=== PATIENT | female | born 1995 | race Two or more races ===

== ENCOUNTER 2023-04-29 10:37 | Outpatient (CLI) | payer OTHER | END 2023-04-29 17:17 | disposition home or self-care (01) | LOC: PRENATAL 10:37 | PROVIDERS: ATTEND Obstetrics & Gynecology Maternal & Fetal Medicine | DX: O35.3XX0 Maternal care for (suspected) damage to fetus from viral disease in mother, not applicable or unspecified (principal); O34.219 Maternal care for unspecified type scar from previous cesarean delivery; O44.00 Complete placenta previa NOS or without hemorrhage, unspecified trimester; Z3A.20 20 weeks gestation of pregnancy ==

== ENCOUNTER → 2023-06-24 14:54 | Outpatient (CLI) | payer OTHER | END | disposition home or self-care (01) | LOC: PRENATAL 14:54 | PROVIDERS: ATTEND Obstetrics & Gynecology Maternal & Fetal Medicine | DX: O26.849 Uterine size-date discrepancy, unspecified trimester (principal); O34.219 Maternal care for unspecified type scar from previous cesarean delivery; O44.00 Complete placenta previa NOS or without hemorrhage, unspecified trimester; O43.219 Placenta accreta, unspecified trimester; Z3A.28 28 weeks gestation of pregnancy ==

== ENCOUNTER → 2023-06-29 | Emergency (ER) | payer OTHER ==
[~2023-06-29] VITALS: Ht 160 cm; Wt 73.5 kg
[~2023-06-29] MED LIST: PRENATABS RX T1 EACH
[2023-06-29 19:29] LABS: HEMATOCRIT 31.2 % (36.0-45.00); HEMOGLOBIN 10.3 g/dL (12.0-15.00); MEAN CELL VOLUME 83.3 fL (80.00-100.00); MEAN CORPUSCULAR HEMOGLOBIN 27.6 pg (27.00-32.0); MEAN CORPUSCULAR HGB CONC 33.2 g/dl (32.0-36.0); PLATELET COUNT 259 K/uL (150-450); RED BLOOD COUNT 3.74 M/uL (4.00-6.00); RED CELL DISTRIBUTION WIDTH 14.6 % (11.5-14.5)
[2023-06-29 19:50] LABS: ABG PH 7.431 (7.35-7.45); ABG PO2 78.4 mmHg (80-100); BICARBONATE 18.9 mmol/l (23-25); SaO2 95.7 %; Tco2 19.7 mmol/l; o2 21 %
[2023-06-29 19:51] LABS: allen test SATISFACTORY; puncture site RADIAL RIGHT
== END | disposition home or self-care (01) ==
LOC: ER 18:25
PROVIDERS: Nurse Practitioner Family
DX: J45.901 Unspecified asthma with (acute) exacerbation (principal); Z20.822 Contact with and (suspected) exposure to COVID-19

== ENCOUNTER 2023-06-30 15:38 | Inpatient (IN) | payer OTHER ==
[~2023-06-30] VITALS: Ht 157.5 cm; Wt 73.5 kg
[2023-06-30 20:48] LABS: PH,URINE 5.5 (5.0-8.0); URINE APPEARANCE Turbid; URINE BILIRRUBIN Negative (NEGATIVE); URINE BLOOD Negative; URINE COLOR Yellow; URINE LEUKOCYTE Small; URINE NITRATE Negative; URINE PROTEIN Negative (NEGATIVE)
[2023-06-30 20:49] LABS: URINE RBC 9.6 uL (0.0-20.8); URINE WBC 227.5 uL (0.0-23.2)
[2023-06-30 21:09] LABS: URINE BACTERIA > 9821.5 uL (0.0-1933); URINE CRYSTALS FEW /HPF; URINE EPITHELIAL CELLS > 201.7 uL (0.0-38.8); URINE GLUCOSE 250 MG/DL (NEGATIVE)
== END 2023-07-01 15:51 | disposition home or self-care (01) | DRG 833 ==
LOC: OBS/DEL 15:38 → LDR 17:43
PROVIDERS: ADMIT Obstetrics & Gynecology Obstetrics; ATTEND Obstetrics & Gynecology Obstetrics
PROC: 4A1HXCZ Monitoring of Products of Conception, Cardiac Rate, External Approach (ICD-10-PCS; principal; 2023-06-30)
PROC: 3E0F7GC Introduction of Other Therapeutic Substance into Respiratory Tract, Via Natural or Artificial Opening (ICD-10-PCS; 2023-06-30)
DX: O99.513 Diseases of the respiratory system complicating pregnancy, third trimester (principal); J45.909 Unspecified asthma, uncomplicated; Z3A.29 29 weeks gestation of pregnancy; Z20.822 Contact with and (suspected) exposure to COVID-19

== ENCOUNTER 2023-07-28 22:17 | Inpatient (IN) | payer OTHER ==
[~2023-07-28] VITALS: Ht 157.5 cm; Wt 76.2 kg
[2023-07-28] MEDS ORDERED: LABETALOL HCL 100 MG/20 ML ML ONE (22:46)
[2023-07-28] MEDS ORDERED: BETAMETHASONE ACETATE,SOD PHOS 30 MG/5 ML ML ONE (22:57)
[2023-07-28] MEDS ORDERED: MAGNESIUM SULFATE IN WATER 500 ML IV SCH (23:30)
[2023-07-28] MEDS ORDERED: BETAMETHASONE ACETATE,SOD PHOS 30 MG/5 ML ML IM ONE (23:30)
[2023-07-28] MEDS ORDERED: LABETALOL HCL 100 MG/20 ML ML IV PUSH ONE ×3 (23:30)
[2023-07-28 23:56] LABS: PH,URINE 6.5 (5.0-8.0); URINE APPEARANCE Clear; URINE BILIRRUBIN Negative (NEGATIVE); URINE BLOOD Small; URINE COLOR Yellow; URINE GLUCOSE Negative (NEGATIVE); URINE LEUKOCYTE Negative; URINE NITRATE Negative; URINE PROTEIN >=1000 (NEGATIVE); URINE UROBILINOGEN 0.2 E.U./dl
[2023-07-28 23:59] LABS: URINE BACTERIA 549.3 uL (0.0-1933); URINE EPITHELIAL CELLS 34.7 uL (0.0-38.8); URINE RBC 19.8 uL (0.0-20.8); URINE WBC 22.2 uL (0.0-23.2)
[2023-07-29 00:07] LABS: HEMATOCRIT 35.5 % (36.0-45.00); MEAN CELL VOLUME 82.4 fL (80.00-100.00); MEAN CORPUSCULAR HGB CONC 33.6 g/dl (32.0-36.0); PLATELET COUNT 250 K/uL (150-450); RED CELL DISTRIBUTION WIDTH 16.1 % (11.5-14.5)
[2023-07-29 00:08] LABS: HEMOGLOBIN 11.9 g/dL (12.0-15.00); MEAN CORPUSCULAR HEMOGLOBIN 27.6 pg (27.00-32.0)
[2023-07-29 00:26] LABS: INR < 0.93; PARTIAL THROMBOPLASTIN TIME 27.3 SECONDS (22.0-34.0); PROTHROMBIN TIME 9.7 SECONDS (9.0-11.5)
[2023-07-29 00:28] LABS: ABG PH 7.396 (7.35-7.45); ABG PO2 78.1 mmHg (80-100); ABG pCO2 30.4 mmHg (35-45); BASE EXCESS -5.3 mmol/l; BICARBONATE 18.2 mmol/l (23-25); SaO2 95.1 %; Tco2 19.2 mmol/l; allen test SATISFACTORY; puncture site RADIAL RIGHT
[2023-07-29 00:29] LABS: o2 32 %
[2023-07-29] MEDS ORDERED: LEVALBUTEROL HCL 0.63 MG/3 ML SOLUTION IH SCH (00:30)
[2023-07-29 00:31] LABS: ALBUMIN 1.9 gm/dL (3.4-5.0); BILIRUBIN TOTAL 0.33 mg/dL (0.3-1.2); CALCIUM 8.3 mg/dL (8.5-10.1); CREATININE SERUM 1.03 mg/dL (0.55-1.02); GFR 63.35; GLOBULINA 3.8 G/DL (2.4-3.5); POTASSIUM 4.11 mEq/L (3.5-5.1); TOTAL PROTEIN 5.7 gm/dL (6.4-8.2)
[2023-07-29] MEDS ORDERED: PROMETHAZINE HCL 25 MG/ML AMPUL IV ONE (01:00)
[2023-07-29] MEDS ORDERED: MEPERIDINE HCL/PF 25 MG/ML VIAL IV ONE (01:00)
[2023-07-29] MEDS ORDERED: LABETALOL HCL 100 MG/20 ML ML IV PUSH ONE ×3 (01:00→07:30)
[2023-07-29] MEDS ORDERED: METHYLPREDNISOLONE SOD SUCC 40 MG VIAL IV STA (08:51)
[2023-07-29] MEDS ORDERED: PANTOPRAZOLE SODIUM 40 MG/VIAL VIAL IV PUSH SCH (09:00)
[2023-07-29] MEDS ORDERED: BUDESONIDE 0.5 MG/2 ML AMPUL.NEB IH SCH (09:00)
[2023-07-29] MEDS ORDERED: LABETALOL HCL 200 MG/40 ML VIAL IV SCH (09:00)
[2023-07-29] MEDS ORDERED: ENOXAPARIN SODIUM 30 MG/0.3 ML SYRINGE SUBCUTANEO SCH (09:00)
[2023-07-29] MEDS ORDERED: SODIUM CHLORIDE 0.45% IV SCH (09:45)
[2023-07-29] MEDS ORDERED: LABETALOL HCL IV SCH (09:45)
[2023-07-29] MEDS ORDERED: hydrALAZINE HCL 20 MG VIAL IV PRN (12:45)
[2023-07-29] MEDS ORDERED: hydrALAZINE HCL 25 MG TABLET PO SCH (13:00)
[2023-07-29 14:02] LABS: HEMATOCRIT 43.4 % (36.0-45.00); HEMOGLOBIN 14.4 g/dL (12.0-15.00); MEAN CELL VOLUME 82.2 fL (80.00-100.00); MEAN CORPUSCULAR HEMOGLOBIN 27.2 pg (27.00-32.0); MEAN CORPUSCULAR HGB CONC 33.1 g/dl (32.0-36.0); PLATELET COUNT 255 K/uL (150-450); RED BLOOD COUNT 5.28 M/uL (4.00-6.00); RED CELL DISTRIBUTION WIDTH 16.7 % (11.5-14.5)
[2023-07-29 14:44] LABS: FIBRINOGEN 591 mg/dL (187.0-446.0); INR < 0.93; PARTIAL THROMBOPLASTIN TIME 23.6 SECONDS (22.0-34.0); PROTHROMBIN TIME 9.3 SECONDS (9.0-11.5)
[2023-07-29 15:04] LABS: ALBUMIN 2.2 gm/dL (3.4-5.0); BILIRUBIN TOTAL 0.47 mg/dL (0.3-1.2); CALCIUM 8.1 mg/dL (8.5-10.1); CREATININE SERUM 1.03 mg/dL (0.55-1.02); GFR 63.35; GLOBULINA 4.6 G/DL (2.4-3.5); POTASSIUM 4.32 mEq/L (3.5-5.1); TOTAL PROTEIN 6.8 gm/dL (6.4-8.2); URIC ACID 8.5 mg/dL (2.5-7.5)
[2023-07-29] MEDS ORDERED: METHYLPREDNISOLONE SOD SUCC 40 MG VIAL IV SCH (17:00)
[2023-07-29] MEDS ORDERED: ERYTHROMYCIN BASE 3.5 GM OINT...G. OP ONE (17:42)
[2023-07-29] MEDS ORDERED: OXYTOCIN 10 UNITS/ML VIAL ONE (17:42)
[2023-07-29] MEDS ORDERED: CEFAZOLIN SODIUM 1,000 MG VIAL ONE (18:27)
[2023-07-29] MEDS ORDERED: MEPERIDINE HCL/PF 50 MG/ML VIAL IM PRN (19:15)
[2023-07-29] MEDS ORDERED: OXYTOCIN 1,000 ML IV SCH (19:15)
[2023-07-29] MEDS ORDERED: OXYTOCIN 20 UNITS/1000ML RL PIGGYBAG IV ONE (20:45)
[2023-07-29] MEDS ORDERED: ERYTHROMYCIN BASE 1 GM TUBE OP ONE (20:45)
[2023-07-29] MEDS ORDERED: CEFAZOLIN SODIUM 1,000 MG VIAL IV ONE (20:45)
[2023-07-29] MEDS ORDERED: PROMETHAZINE HCL 25 MG/ML AMPUL IM SCH (21:00)
[2023-07-29 22:49] LABS: ABG PH 7.132 (7.35-7.45); ABG PO2 11.5 mmHg (80-100); ABG pCO2 57.7 mmHg (35-45); BASE EXCESS -10.9 mmol/l; BICARBONATE 18.8 mmol/l (23-25); SaO2 7.3 %; Tco2 20.6 mmol/l; o2 21 %
[2023-07-29] MEDS ORDERED: BETAMETHASONE ACETATE,SOD PHOS 30 MG/5 ML ML IM ONE (23:00)
[2023-07-30 07:27] LABS: HEMATOCRIT 39.3 % (36.0-45.00); HEMOGLOBIN 12.8 g/dL (12.0-15.00); MEAN CELL VOLUME 82.2 fL (80.00-100.00); MEAN CORPUSCULAR HEMOGLOBIN 26.9 pg (27.00-32.0); MEAN CORPUSCULAR HGB CONC 32.7 g/dl (32.0-36.0); PLATELET COUNT 283 K/uL (150-450); RED BLOOD COUNT 4.78 M/uL (4.00-6.00); RED CELL DISTRIBUTION WIDTH 16.6 % (11.5-14.5)
[2023-07-30 07:31] LABS: ALBUMIN 1.8 gm/dL (3.4-5.0); BILIRUBIN TOTAL 0.26 mg/dL (0.3-1.2); CALCIUM 7.6 mg/dL (8.5-10.1); CREATININE SERUM 1.32 mg/dL (0.55-1.02); GFR 47.58; GLOBULINA 3.6 G/DL (2.4-3.5); POTASSIUM 4.46 mEq/L (3.5-5.1); TOTAL PROTEIN 5.4 gm/dL (6.4-8.2)
[2023-07-30] MEDS ORDERED: OxyCODONE HCL/APAP UD (PERCOCET) PO PRN (09:45)
[2023-07-31 07:17] LABS: ALBUMIN 1.9 gm/dL (3.4-5.0); BILIRUBIN TOTAL 0.26 mg/dL (0.3-1.2); CALCIUM 6.9 mg/dL (8.5-10.1); CREATININE SERUM 0.94 mg/dL (0.55-1.02); GFR 69.92; GLOBULINA 3.7 G/DL (2.4-3.5); POTASSIUM 4.64 mEq/L (3.5-5.1); TOTAL PROTEIN 5.6 gm/dL (6.4-8.2)
[2023-07-31 07:22] LABS: HEMATOCRIT 37.4 % (36.0-45.00); HEMOGLOBIN 12.2 g/dL (12.0-15.00); MEAN CELL VOLUME 81.9 fL (80.00-100.00); MEAN CORPUSCULAR HEMOGLOBIN 26.8 pg (27.00-32.0); MEAN CORPUSCULAR HGB CONC 32.8 g/dl (32.0-36.0); PLATELET COUNT 290 K/uL (150-450); RED BLOOD COUNT 4.57 M/uL (4.00-6.00); RED CELL DISTRIBUTION WIDTH 16.6 % (11.5-14.5)
[2023-08-01 08:17] LABS: ALBUMIN 1.8 gm/dL (3.4-5.0); BILIRUBIN TOTAL 0.31 mg/dL (0.3-1.2); CALCIUM 7.4 mg/dL (8.5-10.1); CREATININE SERUM 0.76 mg/dL (0.55-1.02); GFR 89.36; GLOBULINA 3.2 G/DL (2.4-3.5); POTASSIUM 4.66 mEq/L (3.5-5.1)
[2023-08-01 08:23] LABS: HEMATOCRIT 31.5 % (36.0-45.00); MEAN CELL VOLUME 83.2 fL (80.00-100.00); MEAN CORPUSCULAR HGB CONC 32.9 g/dl (32.0-36.0); PLATELET COUNT 205 K/uL (150-450); RED BLOOD COUNT 3.79 M/uL (4.00-6.00); RED CELL DISTRIBUTION WIDTH 16.9 % (11.5-14.5)
[2023-08-01 08:32] LABS: HEMOGLOBIN 10.4 g/dL (12.0-15.00); MEAN CORPUSCULAR HEMOGLOBIN 27.4 pg (27.00-32.0)
== END 2023-08-01 14:50 | disposition home or self-care (01) | DRG 788 ==
LOC: LDR 22:17 → O/R 07-29 18:47 → LDR 07-30 00:46 → OB/GYN 07-31 15:24
PROVIDERS: Obstetrics & Gynecology Maternal & Fetal Medicine; ADMIT Obstetrics & Gynecology Obstetrics; ATTEND Obstetrics & Gynecology Obstetrics
PROC: 4A1HXCZ Monitoring of Products of Conception, Cardiac Rate, External Approach (ICD-10-PCS; 2023-07-28)
PROC: BY4FZZZ Ultrasonography of Third Trimester, Single Fetus (ICD-10-PCS; 2023-07-29)
PROC: 3E0F7GC Introduction of Other Therapeutic Substance into Respiratory Tract, Via Natural or Artificial Opening (ICD-10-PCS; 2023-07-29)
PROC: 10D00Z1 Extraction of Products of Conception, Low, Open Approach (ICD-10-PCS; principal; 2023-07-30)
DX: O14.04 Mild to moderate pre-eclampsia, complicating childbirth (principal); O26.843 Uterine size-date discrepancy, third trimester; O36.8130 Decreased fetal movements, third trimester, not applicable or unspecified; O36.5930 Maternal care for other known or suspected poor fetal growth, third trimester, not applicable or unspecified; O99.52 Diseases of the respiratory system complicating childbirth; J45.909 Unspecified asthma, uncomplicated; O34.211 Maternal care for low transverse scar from previous cesarean delivery; O14.94 Unspecified pre-eclampsia, complicating childbirth; Z3A.33 33 weeks gestation of pregnancy; Z37.0 Single live birth; Z20.822 Contact with and (suspected) exposure to COVID-19

== ENCOUNTER 2023-08-03 14:06 | Inpatient (IN) | payer OTHER ==
[~2023-08-03] VITALS: Ht 167.6 cm; Wt 61.2 kg
[2023-08-03 17:10] LABS: HEMATOCRIT 35.7 % (36.0-45.00); HEMOGLOBIN 11.6 g/dL (12.0-15.00); MEAN CELL VOLUME 81.8 fL (80.00-100.00); MEAN CORPUSCULAR HEMOGLOBIN 26.7 pg (27.00-32.0); MEAN CORPUSCULAR HGB CONC 32.6 g/dl (32.0-36.0); PLATELET COUNT 263 K/uL (150-450); RED BLOOD COUNT 4.36 M/uL (4.00-6.00)
[2023-08-03 17:25] LABS: PH,URINE 6.5 (5.0-8.0); URINE APPEARANCE Clear; URINE BACTERIA 27.7 uL (0.0-1933); URINE BILIRRUBIN Negative (NEGATIVE); URINE BLOOD Trace; URINE COLOR Yellow; URINE EPITHELIAL CELLS 8.6 uL (0.0-38.8); URINE GLUCOSE Negative (NEGATIVE); URINE LEUKOCYTE Negative; URINE NITRATE Negative; URINE RBC 27.4 uL (0.0-20.8); URINE WBC 15.4 uL (0.0-23.2)
[2023-08-03 17:29] LABS: INR 0.95; PARTIAL THROMBOPLASTIN TIME 24.2 SECONDS (22.0-34.0)
[2023-08-03 17:30] LABS: CALCIUM 8.9 mg/dL (8.5-10.1); CREATININE SERUM 0.8 mg/dL (0.55-1.02); GFR 84.22; POTASSIUM 4.37 mEq/L (3.5-5.1)
[2023-08-03 17:32] LABS: URINE PROTEIN 300 (NEGATIVE)
== END 2023-08-06 18:09 | disposition home or self-care (01) | DRG 776 ==
LOC: ER 14:06 → OB/GYN 23:27
PROVIDERS: General Practice; ADMIT Obstetrics & Gynecology Obstetrics; ATTEND Obstetrics & Gynecology Obstetrics
DX: O14.15 Severe pre-eclampsia, complicating the puerperium (principal); Z20.822 Contact with and (suspected) exposure to COVID-19